=== PATIENT | male | born 2000 | race American Indian/Alaskan Native ===

== ENCOUNTER 2018-08-14 00:46 | Emergency (ER) | payer SELFPAY | END 2018-08-14 06:21 | disposition left against medical advice (07) | LOC: ED 00:46 ==

== ENCOUNTER 2019-05-16 22:55 | Emergency (ER) | payer SELFPAY ==
[2019-05-16 23:41] LABS: Bilirubin,Urine NEG (Negative); Blood,Urine NEG (Negative); Color,Urine Straw (Yellow); Protein,Urine <15 mg/dL mg/dL (Negative); RBC,Urine < 1.0 /HPF (0.0-6.0); Urobilinogen,Urine < 2.0 mg/dL (<2.0)
[2019-05-16 23:51] LABS: Hematocrit 41.6 % (35.5-45.6); Hemoglobin 14.4 gm/dl (11.8-15.2); Mean Corpuscular HGB Conc 35 % (32-34); Mean Corpuscular Volume 80 fl (84-94); Platelet Count 192 K/mm3 (140-440); Red Blood Count 5.19 M/mm3 (3.65-5.03); Red Cell Distribution Width 13.6 % (13.2-15.2)
[2019-05-17 00:05] LABS: Alanine Aminotransferase 19 units/L (7-56); Albumin 4.2 g/dL (3.9-5); BUN/Creatinine Ratio 16; Blood Urea Nitrogen 14 mg/dL (9-20); Calcium 8.9 mg/dL (8.4-10.2); Hemolysis Index 6
--- NOTE | 2019-05-17 00:05 | Emergency Department Report ---
ED Abdominal Pain HPI - General Chief Complaint: Abdominal Pain Stated Complaint: ABD PAIN Time Seen by Provider: 05/16/19 23:52 Source: patient Mode of arrival: Ambulatory Limitations: No Limitations - History of Present Illness Initial Comments: Patient is a 18-year-old male presents emergency room with complaints of epigastric abdominal pain that began 2 days ago. describes the pain as a squeezing sensation. denies any nausea, vomiting, diarrhea, fever, dysuria, penile discharge, testicular edema, testicular pain. He had a normal bowel movement today. pt states that he took Pepto-Bismol without much relief. Denies any past medical history or allergies medications. - Related Data Previous Rx's Medication Instructions Recorded Last Taken Type Famotidine [Pepcid] 40 mg PO QHS #30 tablet 05/17/19 Unknown Rx Sucralfate [Carafate] 1 gm PO ACHS 7 Days #21 tablet 05/17/19 Unknown Rx Allergies Allergy/AdvReac Type Severity Reaction Status Date / Time No Known Allergies Allergy Verified 08/14/18 01:16 ED Review of Systems ROS: Stated complaint: ABD PAIN Other details as noted in HPI Comment: All other systems reviewed and negative ED Past Medical Hx - Past Medical History Previous Medical History?: No - Surgical History Past Surgical History?: No - Social History Smoking Status: Never Smoker Substance Use Type: None - Medications Home Medications: Home Medications Medication Instructions Recorded Confirmed Last Taken Type Famotidine [Pepcid] 40 mg PO QHS #30 tablet 05/17/19 Unknown Rx Sucralfate [Carafate] 1 gm PO ACHS 7 Days #21 tablet 05/17/19 Unknown Rx ED Physical Exam - General Limitations: No Limitations General appearance: alert, in no apparent distress - Head Head exam: Present: atraumatic, normocephalic - Eye Eye exam: Present: normal appearance - ENT ENT exam: Present: mucous membranes moist - Respiratory Respiratory exam: Present: normal lung sounds bilaterally. Absent: respiratory distress, wheezes, rales, rhonchi, stridor, chest wall tenderness, accessory muscle use, decreased breath sounds, prolonged expiratory - Cardiovascular Cardiovascular Exam: Present: regular rate, normal rhythm, normal heart sounds. Absent: systolic murmur, diastolic murmur, rubs, gallop - GI/Abdominal GI/Abdominal exam: Present: soft, tenderness (epigastric), normal bowel sounds. Absent: distended, guarding, rebound, rigid - Neurological Exam Neurological exam: Present: alert, oriented X3 - Psychiatric Psychiatric exam: Present: normal affect, normal mood - Skin Skin exam: Present: warm, dry, intact ED Course Vital Signs 05/16/19 05/16/19 05/17/19 23:01 23:03 01:03 Temperature 98.5 F 98.5 F Pulse Rate 62 66 Respiratory 18 18 18 Rate Blood Pressure 136/80 136/80 Blood Pressure [Left] O2 Sat by Pulse 100 100 Oximetry 05/17/19 01:51 Temperature Pulse Rate 59 L Respiratory 18 Rate Blood Pressure Blood Pressure 115/66 [Left] O2 Sat by Pulse Oximetry ED Medical Decision Making - Lab Data Result diagrams: 05/16/19 23:26 05/16/19 23:26 - Medical Decision Making Patient is a 18-year-old male presents emergency room with complaints of epigastric abdominal pain that began 2 days ago. describes the pain as a squeezing sensation. denies any nausea, vomiting, diarrhea, fever, dysuria, penile discharge, testicular edema, testicular pain. He had a normal bowel movement today. pt states that he took Pepto-Bismol without much relief. Denies any past medical history or allergies medications. vitals are normal. on exam: epigastric abd TTP, no rebound, no guarding, no peritoneal signs. labs are normal. UA is normal. pt given GI cocktail and protonix and symptoms improved. pt declined the zofran and IV fluids. Will have pt follow up as an outpatient with GI doctor for peptic ulcer disease versus gastritis versus acid reflux. pt given prescription for carafate and pepcid. advised pt to please take medication as prescribed. Increase your water intake. Follow the diet for ulcers. Please follow-up with a GI doctor and a primary care doctor in the next 3-5 days. return to the emergency room for any new or worsening symptoms. - Differential Diagnosis PUD, GERD, H pylori, gastritis, pancreatitis, gas pain Critical care attestation.: If time is entered above; I have spent that time in minutes in the direct care of this critically ill patient, excluding procedure time. ED Disposition Clinical Impression: Epigastric abdominal pain Disposition: - TO HOME OR SELFCARE Is pt being admited?: No Does the pt Need Aspirin: No Condition: Stable Instructions: Diet for Ulcers and Gastritis (ED), Abdominal Pain (ED) Additional Instructions: Please take medication as prescribed. Increase your water intake. Follow the diet for ulcers. Please follow-up with a GI doctor and a primary care doctor in the next 3-5 days. return to the emergency room for any new or worsening symptoms. Prescriptions: Famotidine [Pepcid] 40 mg PO QHS #30 tablet Sucralfate [Carafate] 1 gm PO ACHS 7 Days #21 tablet Referrals: [facility] [Provider Group] - 3-5 Days [facility] [Provider Group] - 3-5 Days Forms: Accompanied Note, Work/School Release Form(ED) Time of Disposition: 01:55 Print Language: CITIZEN OF [place]
[2019-05-17] MEDS: BENTYL PO ONE (01:02)
[2019-05-17] MEDS: ALUM-MAG HYDROX-SIMETH 200-200-20MG/5ML PO ONE (01:02)
[2019-05-17] MEDS: LIDOCAINE VISCOUS 2% PO ONE (01:02)
[2019-05-17] MEDS: PROTONIX IV ONE (01:49)
[2019-05-17 01:53] VITALS: BP 115/66
[2019-05-17] MEDS: NACL 0.9% 1000 ML 1,000 ML IV ONE (02:07)
[2019-05-17] MEDS: ZOFRAN IV ONE (02:07)
[2019-05-17 04:22] LABS: Total Cells Counted 100
[2019-05-17 04:23] LABS: Anisocytosis Few; Ovalocytes Few; Platelet Estimate Consistent w Auto
== END 2019-05-17 02:10 | disposition home or self-care (01) ==
LOC: ED 22:55
DX: R10.13 Epigastric pain (principal)
CPT/HCPCS: 36415; 80053; 81001; 83690; 85007; 85025; 96374; 99283; C9113; J2405; J7030

== ENCOUNTER 2019-05-17 21:18 | Emergency (ER) | payer SELFPAY ==
--- NOTE | 2019-05-17 22:02 | Event Note ---
ED Screening Note Date of service: 05/17/19 Time: 22:00 ED Screening Note: Pt complains of worsening abdominal pain since ED visit yesterday. States compliance with meds prescribed. states pain 10/10 in severity. treated for gastritis yesterday denies heavy alcohol use This initial assessment/diagnostic orders/clinical plan/treatment(s) is/are subject to change based on patients health status, clinical progression and re- assessment by fellow clinical providers in the ED. Further treatment and workup at subsequent clinical providers discretion. Patient/guardian urged not to elope from the ED as their condition may be serious if not clinically assessed and managed. Initial orders include: labs Ct pt refuses meds at this time
[2019-05-17 22:59] LABS: Basophils # (Auto) 0.1 K/mm3 (0.0-0.1); Basophils % (Auto) 0.9 % (0.0-1.8); Eosinophils # (Auto) 0.3 K/mm3 (0.0-0.4); Eosinophils % (Auto) 4.6 % (0.0-4.3); Hemoglobin 14.8 gm/dl (11.8-15.2); Lymphocytes # (Auto) 2.4 K/mm3 (1.2-5.4); Lymphocytes % (Auto) 42.4 % (13.4-35.0); Mean Corpuscular HGB Conc 33 % (32-34); Mean Corpuscular Volume 81 fl (84-94); Monocytes # (Auto) 0.5 K/mm3 (0.0-0.8); Monocytes % (Auto) 9.4 % (0.0-7.3); Platelet Count 202 K/mm3 (140-440); Red Blood Count 5.54 M/mm3 (3.65-5.03); Red Cell Distribution Width 13.7 % (13.2-15.2)
[2019-05-17 23:34] LABS: Alanine Aminotransferase 16 units/L (7-56); Albumin 4.4 g/dL (3.9-5); BUN/Creatinine Ratio 13; Blood Urea Nitrogen 10 mg/dL (9-20); Calcium 9.3 mg/dL (8.4-10.2); Hemolysis Index 27
--- NOTE | 2019-05-17 23:52 | Cat Scan Report ---
CT ABDOMEN AND PELVIS WITH IV CONTRAST INDICATION: epigastric pain. COMPARISON: None available. TECHNIQUE: Axial CT images were obtained through the abdomen and pelvis after IV contrast. All CT scans at this location are performed using CT dose reduction for ALARA by means of automated exposure control. FINDINGS -- ABDOMEN: Lung Bases: No acute abnormality. Liver: Normal. Gallbladder: Normal. Bile Ducts: Normal. Pancreas: Normal. Spleen: Normal. Adrenals: Normal. Right Kidney and Proximal Ureter: Normal. Left Kidney and Proximal Ureter: Normal. Stomach and Bowel: Normal. Lymph Nodes: No significant adenopathy. Aorta: No significant abnormality. IVC: Normal. Additional Findings: None. FINDINGS -- PELVIS: Urinary Bladder and Distal Ureters: Normal. Reproductive Organs: No acute abnormality. Appendix: Normal. Bowel: No acute abnormality. Free Fluid: Small free pelvic fluid.. Lymph Nodes: No significant adenopathy. Additional Findings: None. Skeletal System: No acute abnormality. IMPRESSION: Tiny free pelvic fluid, nonspecific. Moderate to large stool burden identified throughout the colon w hich could be seen with constipation. Signer Name: Willian Conley MD Signed: 05/17/2019 11:48 PM Workstation Name: [id number]
[2019-05-18] MEDS ORDERED: NORCO 5/325 PO ONE (04:26)
--- NOTE | 2019-05-18 05:10 | Emergency Department Report ---
HPI - General Chief Complaint: Abdominal Pain Time Seen by Provider: 05/18/19 04:09 - HPI HPI: 18-year-old -[place] male presents to the emergency department with complaint of a 3 to four-day history of some mid abdominal pain. He denies any fever, nausea, vomiting, diarrhea, constipation. He was seen here yesterday for the same symptoms and was discharged home with some Pepcid and Carafate, but never filled this medication. No past medical history. No primary care physician. No recent travel or sick contacts at home. ED Past Medical Hx - Past Medical History Previous Medical History?: No - Surgical History Past Surgical History?: No - Social History Smoking Status: Never Smoker Substance Use Type: Alcohol - Medications Home Medications: Home Medications Medication Instructions Recorded Confirmed Last Taken Type Famotidine [Pepcid] 40 mg PO QHS #30 tablet 05/17/19 Unknown Rx Sucralfate [Carafate] 1 gm PO ACHS 7 Days #21 tablet 05/17/19 Unknown Rx Docusate Sodium [Colace] 100 mg PO BID PRN #20 capsule 05/18/19 Unknown Rx Magnesium Citrate [Citrate of 300 ml PO NOW PRN #1 bottle 05/18/19 Unknown Rx Magnesia] ED Review of Systems ROS: Stated complaint: ABD PAIN Other details as noted in HPI Comment: All other systems reviewed and negative Constitutional: denies: chills, fever Gastrointestinal: abdominal pain. denies: nausea, vomiting, diarrhea Genitourinary: denies: dysuria, discharge Musculoskeletal: denies: back pain, arthralgia Physical Exam - Physical Exam Vital Signs: Vital Signs 05/17/19 05/18/19 05/18/19 21:27 04:35 04:37 Temperature 98.6 F 97.6 F Pulse Rate 65 56 L Respiratory 18 12 16 Rate Blood Pressure 124/79 Blood Pressure 132/97 [Left] O2 Sat by Pulse 99 100 Oximetry Physical Exam: GENERAL: The patient is well-developed well-nourished. HENT: Normocephalic. Atraumatic. Patient has moist mucous membranes. EYES: Extraocular motions are intact. NECK: Supple. Trachea is midline. CHEST/LUNGS: Clear to auscultation. There is no respiratory distress noted. HEART/CARDIOVASCULAR: Regular. There is no tachycardia. There is no murmur. ABDOMEN: Abdomen is soft. There is mid to lower abdominal tenderness to palpation. No guarding. Patient has normal bowel sounds. There is no abdominal distention. SKIN: Skin is warm and dry. NEURO: The patient is awake, alert, and oriented. The patient is cooperative. The patient has no focal neurologic deficits. Normal speech. MUSCULOSKELETAL: There is no tenderness or deformity. There is no evidence of acute injury. ED Course Vital Signs 05/17/19 05/18/19 05/18/19 21:27 04:35 04:37 Temperature 98.6 F 97.6 F Pulse Rate 65 56 L Respiratory 18 12 16 Rate Blood Pressure 124/79 Blood Pressure 132/97 [Left] O2 Sat by Pulse 99 100 Oximetry ED Medical Decision Making - Lab Data Result diagrams: 05/17/19 22:42 05/17/19 22:42 - Radiology Data Radiology results: report reviewed CT ABDOMEN AND PELVIS WITH IV CONTRAST INDICATION: epigastric pain. COMPARISON: None available. TECHNIQUE: Axial CT images were obtained through the abdomen and pelvis after IV contrast. All CT scans at this location are performed using CT dose reduction for ALARA by means of automated exposure control. FINDINGS -- ABDOMEN: Lung Bases: No acute abnormality. Liver: Normal. Gallbladder: Normal. Bile Ducts: Normal. Pancreas: Normal. Spleen: Normal. Adrenals: Normal. Right Kidney and Proximal Ureter: Normal. Left Kidney and Proximal Ureter: Normal. Stomach and Bowel: Normal. Lymph Nodes: No significant adenopathy. Aorta: No significant abnormality. IVC: Normal. Additional Findings: None. FINDINGS -- PELVIS: Urinary Bladder and Distal Ureters: Normal. Reproductive Organs: No acute abnormality. Appendix: Normal. Bowel: No acute abnormality. Free Fluid: Small free pelvic fluid.. Lymph Nodes: No significant adenopathy. Additional Findings: None. Skeletal System: No acute abnormality. IMPRESSION: Tiny free pelvic fluid, nonspecific. Moderate to large stool burden identified throughout the colon which could be seen with constipation. Signer Name: Willian Conley MD - Medical Decision Making Patient presents with a few days of some abdominal pain without any nausea, vomiting, diarrhea or constipation. Vital signs stable throughout his ED cour se. He never filled any of the previous medication. Labs have been unremarkable including CBC and metabolic panel. CT scan of the abdomen and pelvis shows a moderate to large stool volume but otherwise no acute abdominal or pelvic process. The patient appears safe for discharge home at this time. He is been given some Colace and magnesium citrate, a referral for gastroenterology and primary care. He has been instructed to return to the emergency Department with any worsening of his symptoms or any acute distress. - Differential Diagnosis constipation, gastritis, diverticulitis, colitis Critical Care Time: No Critical care attestation.: If time is entered above; I have spent that time in minutes in the direct care of this critically ill patient, excluding procedure time. ED Disposition Clinical Impression: Increased stool volume Abdominal pain Qualifiers: Abdominal location: unspecified location Qualified Code(s): R10.9 - Unspecified abdominal pain Disposition: TO HOME OR SELFCARE Is pt being admited?: No Condition: Stable Instructions: Constipation (ED), High Fiber Diet (ED), Abdominal Pain (ED) Additional Instructions: Please follow-up with a primary care physician in the next few days. Return to the emergency Department with any worsening of your symptoms or any acute distress. I am also giving you a referral for a local croze cutter, Dr. Ortiz, to follow up regarding your abdominal pains. Prescriptions: Magnesium Citrate [Citrate of Magnesia] 300 ml PO NOW PRN #1 bottle PRN Reason: Constipation Docusate Sodium [Colace] 100 mg PO BID PRN #20 capsule PRN Reason: Constipation Referrals: ELIJAH ORTIZ MD [Staff Physician] - 2-3 Days [facility] [Outside] - 2-3 Days Time of Disposition: 05:10
[2019-05-18 05:34] VITALS: BP 122/68
== END 2019-05-18 05:20 | disposition home or self-care (01) ==
LOC: ED 21:18
DX: R10.30 Lower abdominal pain, unspecified (principal)
CPT/HCPCS: 36415; 74177; 80053; 83690; 85025; 99284; Q9967